=== PATIENT | male | born 1965 ===

== ENCOUNTER 2024-05-08 03:57 | Day surgery (SDC) | payer OTHER ==
[2024-05-04 14:21] VITALS: BMI 33.0
[2024-05-08] MEDS ORDERED: LIDOCAINE HCL/PF 2% SDV 5ML VIAL ONE (08:27)
[2024-05-08] MEDS ORDERED: PROPOFOL 20 ML ONE (08:28)
[2024-05-08] MEDS ORDERED: MIDAZOLAM HCL 2 MG/2 ML SINGLE DOSE VIAL ONE (08:29)
[2024-05-08] MEDS ORDERED: GENTAMICIN SO4 80 MG/2 ML VIAL ONE (09:38)
[2024-05-08] MEDS ORDERED: ceFAZolin SODIUM 1 GM VIAL ONE (09:41)
[2024-05-08] MEDS ORDERED: ONDANSETRON 4 MG/2 ML VIAL ONE ×2 (09:41→13:22)
[2024-05-08] MEDS ORDERED: DEXAMETHASONE SOD PHOSPHATE 4 MG/1 ML VIAL ONE (09:41)
[2024-05-08] MEDS ORDERED: KETOROLAC TROMETHAMINE 30 MG/1 ML VIAL ONE (09:41)
[2024-05-08] MEDS: ceFAZolin SODIUM 1 GM VIAL IVPB ONE ×2 (09:42)
[2024-05-08] MEDS: GENTAMICIN 80MG PREMIX BAG IVPB ONE ×2 (09:42)
[2024-05-08] MEDS ORDERED: PROMETHAZINE HCL 25 MG/1 ML VIAL IVPB PRN (09:47)
[2024-05-08] MEDS ORDERED: oxyCODONE HCL 5 MG TABLET PO PRN ×2 (09:47)
[2024-05-08] MEDS: ACETAMINOPHEN INJECTION 100 ML IVPB ONE (11:00)
[2024-05-08] MEDS: ACETAMINOPHEN 1000 MG/100 ML BAG IVPB ONE (11:00)
[2024-05-08] MEDS: LACTATED RINGERS SOLUTION 1,000 ML IV SCH (11:22)
[2024-05-08] MEDS: ONDANSETRON 4 MG/2 ML VIAL IVPUSH PRN (13:26)
[2024-05-08 14:55] VITALS: BP 148/91; PULSE 82; RESP 18; TEMP 97.7
== END 2024-05-08 15:11 | disposition home or self-care (01) ==
LOC: JASU-SURG 03:57
PROVIDERS: ATTEND Urology
PROC: 0T7D8DZ Dilation of Urethra with Intraluminal Device, Via Natural or Artificial Opening Endoscopic (ICD-10-PCS; principal; 2024-05-08 09:00)
DX: N40.1 Benign prostatic hyperplasia with lower urinary tract symptoms (principal); R33.8 Other retention of urine
CPT/HCPCS: C9740; L8699; 82962; 94760; J0131